=== PATIENT | male | born 1955 | race Caucasian/White ===

== ENCOUNTER 2017-07-03 14:02 | Emergency (ER) | payer OTHER ==
[~2017-07-03] VITALS: Ht 175.3 cm; Wt 76.8 kg
[2017-07-03 14:09] VITALS: BP 133/88; PULSE 113; RESP 16; O2SAT 99
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
[2017-07-03] MEDS ORDERED: Iohexol 300 mg/mL 30 mL Inj PO ONE (14:50)
[2017-07-03 15:33] LABS: BASOPHILS % (AUTO) 0.3 % (0-3)
[2017-07-03 15:37] LABS: EOSINOPHILS % (AUTO) 1.8 % (0-5); MONOCYTES % (AUTO) 9.1 % (4-12); NEUTROPHILS % (AUTO) 61.6 % (40-74); Platelet Count 87 bil/L (150-400)
[2017-07-03 15:54] LABS: Magnesium 1.8 mg/dL (1.6-2.6)
[2017-07-03 16:08] VITALS: BP 161/101; PULSE 96; RESP 15; O2SAT 100
[2017-07-03 16:34] LABS: INR 0.95 ratio
[2017-07-03 17:11] VITALS: BP 145/83; PULSE 90; RESP 15; O2SAT 100
--- NOTE | 2017-07-03 17:27 | DRSVH ---
PROCEDURE: MRI BRAIN WITH AND WITHOUT CONTRAST ([id number]) INDICATIONS: 62 year-old HIV positive male with worsening CD4 count and headache. TECHNIQUE: Noncontrast axial T1 spin echo, axial T2 fast spin echo, sagittal and axial FLAIR, coronal T2 fast sp in echo, axial gradient echo, axial diffusion and ADC through the brain. After the administration of contrast, axial and coronal 3D VIBE or T1 spin echo with fat saturation through the brain. COMPARISON: None. FINDINGS: Image quality: Excellent. CSF Spaces: Basal cisterns are patent. No extra-axial fluid collections. Ventricles are normal in size and shape. Brain: No intracranial hemorrhage, mass, or mass effect. No abnormal intracranial enhancement. Dif fusion-weighted images demonstrate no acute infarcts. There are a few periventricular foci of white matter T2 hyperintensity. These demonstrate no corresponding enhancement following contrast administ ration. The brainstem appears normal. Normal intravascular flow voids are present. Skull and face: Calvarial marrow is normal in signal. Orbits appear normal. Sinuses: There is a small mucosal polyp or sinus retention cyst within the right maxillary sinus. Th e mastoid air cells are clear. IMPRESSION: 1. Scattered periventricular foci of white matter T2 hyperintensity are nonspecific. The differenti al is broad and includes HIV associated dementia, HIV associated cerebral vasculopathy or other chron ic white matter small vessel ischemic changes, or early manifestations of opportunistic infection. 2. No acute infarcts, mass, or hemorrhage. Dictated by: Marty Rodriguez M.D. on 07/03/2017 at 17:25 Approved by: Marty Rodriguez M.D. on 07/03/2017 at 17:25
--- NOTE | 2017-07-03 18:04 | DRSVH ---
PROCEDURE: CT CHEST, ABDOMEN AND PELVIS [facility] CONTRAST ([id number]) INDICATIONS: occult infection, HIV+ TECHNIQUE: After the administration of oral and intravenous contrast, 5 mm thick sections acquired from the lung apices to the symphysis. 5 mm coronal and sagittal reformats were performed, with additional 7 mm c oronal MIP reformats through the lungs. For radiation dose reduction, the following was used: autom ated exposure control, adjustment of mA and/or kV according to patient size. COMPARISON: None. FINDINGS: Image quality: Excellent. CHEST: Lungs and pleura: Left basilar scarring or atelectasis. Early infiltrate is unlikely. Otherwise no ac quechan airspace opacities. No pleural effusions or pneumothorax. Central and peripheral airways appear patent and normal in caliber. Mediastinum: Heart size is normal. No pericardial effusion. Mediastinal and hilar lymphadenopathy w ith largest lymph node measuring 4.4 x 1.9 CM. Hilar lymph nodes are mildly low-density. Normal heart size. Small pericardial effusion.. Thoracic aorta and central pulmonary arteries are normal in size . Esophagus is normal in caliber. No hiatal hernia. Chest wall: Mild left axillary lymphadenopathy with largest lymph node measuring 1.9 x 1.3 CM. No sup raclavicular adenopathy by size criteria. Thyroid gland is normal where seen. ABDOMEN: Solid organs: Fatty infiltration of the liver. No hepatic masses. Cholelithiasis with no CT evidence of acute cholecystitis. Large splenomegaly. The adrenal glands are normal. Small low-density left anthony al nodule measuring 1.5 CM consistent with a simple cyst. Otherwise the kidneys are normal. No hydron ephrosis or ureterectasis. No solid renal masses. Prostatic hypertrophy. Please note CT cannot effect ively identify or exclude primary prostate cancer. Peritoneum and bowel: Moderate diverticulosis without evidence of acute diverticulitis. Small bowel a nd appendix are normal. Nodes and vessels: Diffuse retroperitoneal, mesenteric, and inguinal lymphadenopathy. Jonnathan hepatis l ymphadenopathy. Aorta and inferior vena cava are normal in size. Right common iliac artery ectasia. Miscellaneous: No ventral hernias. PELVIS: Genitourinary: Bladder wall thickness is normal. Miscellaneous: No inguinal hernias or adenopathy. Bones: No suspicious bony lesions. No vertebral body compression fractures. IMPRESSION: 1. Extensive lymphadenopathy including the mediastinal, axillary, retroperitoneal, mesenteric, and in guinal lymph nodes. Marked splenomegaly. Findings may represent lymphoma. Findings may be related to the patient's known HIV infection. Consider the lymph node biopsy for differentiation. 2. Cholelithiasis with no CT evidence of acute cholecystectomy. 3. No CT evidence of abscess or drainable fluid collections. The Dictated by: Dario Santillan M.D. on 07/03/2017 at 17:50 Approved by: Dario Santillan M.D. on 07/03/2017 at 18:02
[2017-07-03 18:10] LABS: APPEARANCE,URINE HAZY (CLEAR,HAZY); COLOR,URINE DARK YELLOW (YELLOW); OCCULT BLOOD,URINE NEGATIVE (NEGATIVE); PH,URINE 5.5 (5.0-8.0)
[2017-07-03] MEDS ORDERED: Potassium Chloride 20 mEq SR Tablet PO ONE (18:45)
[2017-07-03 19:12] LABS: APPEARANCE,CSF CLEAR (CLEAR)
[2017-07-03 19:13] LABS: COLOR,CSF COLORLESS (COLORLESS); WHITE BLOOD CELL,CSF 27 /mm3 (0-5)
[2017-07-03] MEDS ORDERED: SULF1TAB7 PO (21:09)
[2017-07-03] MEDS ORDERED: POTA10CA42 PO (21:09)
[2017-07-03 21:27] VITALS: BP 143/99; PULSE 101; RESP 18; O2SAT 100
[2017-07-06 11:13] LABS: Cryptococcal Antigen CSF Negative (Negative)
== END 2017-07-03 21:28 | disposition home or self-care (01) ==
LOC: SED 14:02
DX: B20 Human immunodeficiency virus [HIV] disease (principal); G03.9 Meningitis, unspecified
CPT/HCPCS: 36415; 62270; 70553; 71260; 74177; 80053; 81000; 82945; 83605; 83615; 83690; 83735; 84155; 85025; 85610; 86403; 87040; 87070; 87205; 87206; 87496; 87498; 87529; 87532; 87556; 87653; 87798; 89051; 99285; A9585; Q9967

== ENCOUNTER → 2017-07-22 | Day surgery (SDC) | payer OTHER ==
[~2017-07-22] VITALS: Ht 175.3 cm; Wt 77.0 kg
[2017-07-22] VITALS (8 sets, daily range): BP systolic 113–157; BP diastolic 77–115; PULSE 77–92; RESP 15–24; O2SAT 95–99
[~2017-07-22] MED LIST: Atropine 0.4 mg/mL Inj IVPUSH PRN; Bupivacaine-MPF 0.25% 30 mL Inj INFILTRATE ONE; DOLU50TA PO; Dexamethasone 4 mg/mL Inj IVPUSH PRN; EMTR1TAB12 PO; EPHEDrine Sulfate 50 mg/mL Inj IVPUSH PRN; HYDROmorphone 1 mg/mL Inj IVPUSH PRN; Labetalol 5 mg/mL 20 mL Inj IV PRN; Lactated Ringer's 1,000 ML IV ONE; Lactated Ringer's 1,000 ML IV SCH; Lactated Ringer's 500 ML IV PRN; MetoCLOpramide 5 mg/mL 2 mL Inj IVPUSH PRN; Ondansetron 2 mg/mL 2 mL Inj IVPUSH PRN; Ondansetron 2 mg/mL 2 mL Inj ONE; Phenylephrine 10,000 mCg/mL Inj IVPUSH PRN; RITO100T PO; SULF1TAB34 PO; fentaNYL-PF 50 mCg/mL 2 mL Inj IVPUSH PRN; fentaNYL-PF 50 mCg/mL 20 mL Inj ONE; fluconazole; hydrALAZINE 20 mg/mL Inj IVPUSH PRN; oxyCODONE-Acetamin 5-325 mg Tablet PO PRN
[2017-07-22 09:12] LABS: BASOPHILS % (AUTO) 0.4 % (0-3); EOSINOPHILS % (AUTO) 1.9 % (0-5); MONOCYTES % (AUTO) 13.7 % (4-12); Mean Corpuscular Hemoglobin 29.5 pg (27.0-35.0); Mean Corpuscular Volume 85.4 fL (81-100); NEUTROPHILS % (AUTO) 31.3 % (40-74); Platelet Count 60 bil/L (150-400)
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
--- NOTE | 2017-07-22 11:18 | PCM.SURGOP ---
Surgical Operative Report Date of Service: Jul 22, 2017 Pre Operative Diagnosis Lymphadenopathy in the setting of HIV Post Operative Diagnosis Lymphadenopathy in the setting of HIV Procedure: Excision of left inguinal lymph node Surgeon and Animal Care Service Worker: Surgeon: Shreya Ferrell MD Assistants: Avery Castillo PA-C Indication for Procedure This is a 62-year-old male with long-standing HIV who, over the course of the past several months, developed increasing fatigue, weakness, night sweats, and lymphadenopathy. Lymphoma was highly suspected. FNA and core biopsy were paucicellular and therefore lymph node excision was requested. Findings: A large left groin lymph node was removed and cut into several pieces and sent for pathology and cytology. Procedure Details The patient was brought to the operating room and placed in supine position. General anesthesia with an LMA was smoothly induced. A warming blanket and SCDs were placed. Antibiotics were infused. The operative field was prepped and draped in sterile fashion. A pause was performed to confirm the correct patient, procedure, site, and side. A 2cm oblique incision was made in the skin lines of the left groin overlying the largest node. Subcutaneous tissue was dissected with electrocautery. The node was dissected free of surrounding tissues. It was approximately 3 cm in diameter. The surrounding tissue was released with electrocautery, and a sizable lymphatic was ligated with 3-0 Vicryl. The specimen was removed from the field. Hemostasis was obtained. Subcutaneous tissue was closed with 3-0 Vicryl stitches. The skin was closed with a running 4-0 Monocryl stitch. Marcaine 0.5% with epinephrine was infused in the skin for postoperative analgesia. A sterile dressing was placed. The patient was awakened from general anesthesia and taken to postoperative care unit in good condition. Complications There were no periprocedural complications identified. Surgical Specimen Removed: Yes Specimen sent to Pathology: Yes Surgical Specimen description: Left groin lymph node, sent for permanent pathology and cytology Anesthetic Plan: GA Grafts, Implants: None Output, Estimated Blood Loss: 2 (ml) Blood Administration during [place]: No Shreya Ferrell MD Jul 22, 2017 11:18
--- NOTE | 2017-07-22 12:50 | PCM.ANEP1 ---
Post Anesthesia PACU Phase 1 Assessment Date of Service: Jul 22, 2017 Vital Signs Vital Signs Date Time Temp Pulse Resp B/P Pulse Ox O2 Delivery O2 Flow Rate FiO2 07/22/17 11:57 81 15 135/88 96 Room Air 07/22/17 11:44 36.9 77 15 127/85 97 Room Air 07/22/17 11:30 86 18 126/78 96 Room Air 07/22/17 11:25 92 24 125/77 96 Room Air 07/22/17 11:20 92 20 119/78 95 Room Air 07/22/17 11:15 37.0 85 18 113/80 99 Simple Mask 8 07/22/17 08:51 36.6 84 17 157/115 98 Room Air Anesthetic Administered: GA Level of Alertness: Awake, talking MATSON's with Equal Strength: Yes Pain: No Nausea or Vomiting: No CV Function & Hydration Stable: Yes Airway Device: Lungs: Normal Air Movement Dermatome Level: Full Sensation PACU Phase 2 Assessment Complications: No Follow up Care: N/A Patient Instructions Provided: N/A Spencer Car MD Jul 22, 2017 12:50
--- NOTE | 2017-07-28 10:59 | PATH ---
SURGICAL PATHOLOGY Attending Physician:Shreya Ferrell MD CASE STATUS: Signed Out PATIENT NAME: SARITHA THEODORE PID: [id number] : 1955 DATE COLLECTED:07/22/2017 21:05 SPECIMEN: Lymph Node, Biopsy CLINICAL HISTORY: LYMPHADENOPATHY, EXCISION 1). 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 A prior needle core biopsy of the lymph node was previously evaluated at [facility] in [place], [place] with a referral to [facility] in [place]. This biopsy will be referred to [facility] for comparison with the prior needle core biopsy in which a detailed morphologic, immunohistochemical, and molecular workup was performed. The final diagnosis will be issued upon the consultation diagnosis when it is received. 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 Flow Comment: Flow cytometric analysis of a cell suspension prepared from the left inguinal lymph node shows a heterogeneous population of lymphocytes which are of intermediate to large size based upon the light scattering profile. When analyzed as a single population, lymphocytes consist of 58% T cells with a CD4/CD8 ratio of 0.9 and 30% B cells with a marked excess of kappa light chain (kappa/lambda ratio approaches 18.0). Further analysis of the B-cell population shows heterogeneous expression of CD20 with a subpopulation of B cells of higher sidescatter that express CD20 very dimly if at all. Neither CD5 nor CD10 is expressed by the B cells. The dim CD20 subpopulation of B cells also expresses bright CD38 and appears to exhibit kappa light chain restriction. These results taken together suggest the possibility of kappa-restricted monoclonal B-cell population including a subpopulation with marked plasmacytic differentiation and thereby loss of or substantial decrease in CD20. The flow cytometric findings need to be correlated with the lymph node histology and immunohistochemistry in order to confirm the presence of an abnormal B-cell population. This is particularly important in this case because the patient had a prior needle core biopsy of the lymph node which was evaluated at [facility] in [place], [place]. Discussion with Dr. Ferrell and Dr. Gilmore indicated that the biopsy showed a very polymorphous lymphoid infiltrate with abundant plasma cells which appeared to express a marked excess of kappa immunoglobulin. The biopsy was sent to [facility] in [place], [place] for consultation. According to Dr. Gilmore, an extensive workup was performed including T-cell and B-cell gene rearrangements which were negative. These results argued against a clonal population of either T or B cells. In view of these results, caution must be exercised in interpreting the flow cytometric findings as being conclusive for a monoclonal B-cell population, but they do raise a strong suspicion for that possibility. GROSS DESCRIPTION: The specimen is received in one formalin filled container labeled with the patient's name, sublabeled "left inguinal lymph node" and consists of a 2.0 x 1.5 x 1.5 CM yellow to tate-flower portion of tissue. The specimen is sectioned into 4 pieces and entirely submitted in 4 cassettes. 07/22/2017DC MICRO DESCRIPTION: Sections show an enlarged lymph node in which the normal architecture is effaced by markedly expanded paracortex which is infiltrated by polymorphous plasmacytoid lymphocytes and plasma cells. The partially preserved cortex contains scattered, partially disrupted lymphoid follicles. No areas of suppurative inflammation, necrosis or granulomas are identified. The interfollicular zones which are expanded contain large and small atypical lymphocytes with plasmacytoid features. Mitoses are prevalent, but these are not extensive. Immunohistochemistry is performed to further evaluate the nature of the atypical lymphoid infiltrate. IMMUNOHISTOCHEMISTRY STAINRESULT [id number] predominantly in small lymphocytes in the paracortex. [id number] pattern similar to CD3. [id number] restricted to germinal centers of cortical lymphoid follicles. DI69Aglaypimnd predominantly in lymphoid follicles with rare positive staining of interfollicular lymphocytes. [id number] pattern similar to CD20. ET69Pxyzopvn staining of partially disrupted follicular dendritic cell meshworks [id number] for overexpression in lymphoid follicles. Staining of a minor subpopulation of interfollicular lymphocytes. SOM8Zsfgihathg mostly in lymphoid follicles. Ki-67High labeling index within lymphoid follicles with 10%-15% positivity in interfollicular zone. EI03Fsisupyn staining of large lymphoid cells scattered in the interfollicular zone. Revillo:Marked excess staining of plasma cytoid lymphocytes in the interfollicular zone estimated at about 57% of the total interfollicular lymphocytes. LambdaMuch reduced positivity in comparison to kappa within interfollicular zone lymphocytes; estimated to be about 3% to 5% of the total lymphocytes. [id number] of plasma cytoid lymphocytes preferentially in the peripheral zone of the lymph node. Much less positive staining within central areas within the interfollicular zones. IN SITU HYBRIDIZATION In situ hybridization for CHRISTOPHER is performed and shows positive staining of scattered lymphocytes in the interfollicular zone. The positive and negative controls reacted appropriately. ICD-9 CODES: CPT CODES: 49205, 11869, 63365, 75056, 21952, 59760, 25300, 08354, 09165, 05082, 11352, 81967, 99090, 10679 Electronically Signed Out Mauricio Vann MD, PhD [facility] [address], [place] [address] Technical component performed at [facility], [facility] [address], [place], [address]
== END | disposition home or self-care (01) ==
LOC: SAS 07:55
PROVIDERS: ATTEND Surgery
DX: R59.1 Generalized enlarged lymph nodes (principal); Z21 Asymptomatic human immunodeficiency virus [HIV] infection status; R53.83 Other fatigue; R53.1 Weakness; R61 Generalized hyperhidrosis; F17.210 Nicotine dependence, cigarettes, uncomplicated
CPT/HCPCS: 36415; 38500; 85025; 88307; 88341; 88342; J2250; J2405; J3010; J7120